=== PATIENT | female | born 1960 ===

== ENCOUNTER 2017-09-30 14:39 | Outpatient (CLI) | payer OTHER ==
[~2017-09-30 14:39] MED LIST: ACETAMINOOPHEN-1 TAB PO; ALLEGRA ALLERG180 MG; CIPRO750 MG PO; CLONAZEPAM0.5 MG; Colace 100MG PO; DULOXETINE HCL PO; ESTAZOLAM2 MG; GABAPENTIN600 MG; GLIMEPIRIDE4 MG; LATANOPROST EYE; MAXIMUM D; METHYLPRED4 MG/DOSE- PO; NEURONTIN PO; PRILOSEC20 MG
== END 2017-09-30 14:43 | disposition home or self-care (01) ==
LOC: RAD 14:39
DX: M51.36 Other intervertebral disc degeneration, lumbar region (principal); Z98.1 Arthrodesis status